=== PATIENT | female | born 1975 | race Caucasian/White ===

== ENCOUNTER 2020-12-17 07:53 | Inpatient (IN) | payer OTHER ==
[~2020-12-17] VITALS: Ht 167.6 cm; Wt 56.5 kg
--- NOTE | 2020-12-17 08:31 | NUR ---
PT WITH +COVID TEST THIS MONTH, NO NEG TEST FOLLOWING. RESP [employer] CART AT DOORWAY. CALL LIGHT WITHIN REACH. LAB IN TO DRAW.
[2020-12-17 08:43] LABS: BASOPHILS % (AUTO) 0 % (0-1); EOSINOPHILS % (AUTO) 0 % (1-7); LYMPHOCYTES % (AUTO) 17 % (22-44); MEAN CORPUSCULAR HEMOGLOBIN 30.5 pg (27.0-34.8); MEAN CORPUSCULAR HGB CONC 34.5 g/dL (32.4-35.8); MEAN PLATELET VOLUME 8.2 fL (7.4-10.4); MONOCYTES % (AUTO) 7 % (2-9); NEUTROPHILS % (AUTO) 76 % (42-75); PLATELET COUNT 402 x10^3/uL (130-400); RED BLOOD COUNT 4.61 x10^6/uL (3.82-5.3); RED CELL DISTRIBUTION WIDTH 13.7 % (9.6-15.2)
--- NOTE | 2020-12-17 08:44 | NUR ---
PT TO CT.
[2020-12-17 08:56] LABS: ALBUMIN 3.9 g/dL (3.4-5.0); ANION GAP 8 mmol/L (5-15); CALCIUM 8.9 mg/dL (8.5-10.1); CHLORIDE 104 mmol/L (98-107)
[2020-12-17 09:09] LABS: ALANINE AMINOTRANSFERASE 14 U/L (12-78); ALKALINE PHOSPHATASE 46 U/L (45-117); BILIRUBIN,TOTAL 0.7 mg/dL (0.2-1.0); CREATININE 0.65 mg/dL (0.55-1.02); TOTAL PROTEIN 7.2 g/dL (6.4-8.2)
--- NOTE | 2020-12-17 10:05 | NUR ---
ALL RESULTS BACK, PT FOR RECHECK.
--- NOTE | 2020-12-17 10:26 | NUR ---
ADD ON ORDER FOR PSYCH LOGGING CONTRACTOR TO SEE.
--- NOTE | 2020-12-17 11:40 | NUR ---
CONTINUE TO AWAIT TELEVISION NEWS ANCHOR TO SEE.
[2020-12-17] MEDS ORDERED: LORazepam 1MG TABLET ONE (11:55)
--- NOTE | 2020-12-17 11:59 | NUR ---
AVE ESPINOZA IN TO SEE PT.
[2020-12-17] MEDS ORDERED: LORazepam 1MG TABLET PO ONE (12:00)
[2020-12-17] MEDS ORDERED: HALOPERIDOL 1 MG TABLET PO ONE (12:30)
[2020-12-17] MEDS ORDERED: HALOPERIDOL 5 MG/ML ONE (12:49)
[2020-12-17] MEDS: HALOPERIDOL 5 MG/ML IV SCH ×3 (12:55→21:00)
[2020-12-17] MEDS ORDERED: ENALAPRILAT 1.25 MG/ML, 2ML IVPush PRN (13:00)
[2020-12-17] MEDS ORDERED: ACETAMINOPHEN 325 MG TABLET PO PRN (13:00)
[2020-12-17] MEDS ORDERED: SODIUM CHLORIDE 0.9% 1,000 ML IV ONE ×2 (13:00)
[2020-12-17] MEDS ORDERED: SODIUM CHLORIDE FLUSH 10ML SYR IVF ONE (13:00)
[2020-12-17] MEDS ORDERED: SODIUM CHLORIDE FLUSH 10ML SYR IVF PRN (13:00)
--- NOTE | 2020-12-17 13:45 | NUR ---
REPORT TO SONDRA LEWIS READY FOR TRANSPORT WHEN ROOM CLEAN.
[2020-12-17] MEDS: LORazepam 1MG TABLET PO PRN (15:21)
[2020-12-17 18:27] VITALS: BP 125/82
[2020-12-17] MEDS: TEMAZEPAM 15 MG CAPSULE PO PRN (19:36)
[2020-12-17] MEDS: TRAZODONE 100MG TABLET PO SCH (21:00)
[2020-12-18] MEDS: TEMAZEPAM 15 MG CAPSULE PO PRN (00:09)
[2020-12-18 00:21] VITALS: BP 122/74
[2020-12-18] MEDS: LORazepam 1MG TABLET PO PRN ×3 (04:26→17:47)
[2020-12-18 06:10] VITALS: BP 108/60
[2020-12-18] MEDS: HALOPERIDOL 5 MG/ML IV SCH (09:16)
[2020-12-18] MEDS ORDERED: OMNIPAQUE 350 MG/ML, 75ML BOTTLE ONE (11:09)
[2020-12-18 14:00] VITALS: BP 125/85
[2020-12-18] MEDS ORDERED: HALOPERIDOL 5 MG TABLET ONE (18:48)
[2020-12-18] MEDS: HALOPERIDOL 5 MG TABLET PO SCH (18:50)
[2020-12-18] MEDS: TRAZODONE 100MG TABLET PO SCH (20:50)
[2020-12-18 21:39] VITALS: BP_SYST 127; BP_SYST 160; BP_DIAS 71
[2020-12-19] MEDS: TEMAZEPAM 15 MG CAPSULE PO PRN ×2 (00:06→21:04)
[2020-12-19 02:18] VITALS: BP 109/70
[2020-12-19] MEDS: LORazepam 1MG TABLET PO PRN ×2 (02:22→09:34)
[2020-12-19 08:00] VITALS: BP 112/81
[2020-12-19] MEDS: HALOPERIDOL 5 MG TABLET PO SCH ×2 (09:30→21:04)
[2020-12-19 14:00] VITALS: BP 112/81
[2020-12-19] MEDS: AMPICILLIN/SULBACTAM 3 GM in SODIUM CHLORIDE 0.9% 100 ML IV SCH ×2 (17:52→23:12)
[2020-12-19 21:00] VITALS: BP 114/75
[2020-12-19] MEDS: TRAZODONE 100MG TABLET PO SCH (21:04)
[2020-12-20] MEDS: AMPICILLIN/SULBACTAM 3 GM in SODIUM CHLORIDE 0.9% 100 ML IV SCH ×2 (05:19→11:19)
[2020-12-20] MEDS: LORazepam 1MG TABLET PO PRN (05:24)
[2020-12-20 06:09] LABS: BASOPHILS % (AUTO) 0 % (0-1); EOSINOPHILS % (AUTO) 1 % (1-7); LYMPHOCYTES % (AUTO) 28 % (22-44); MEAN CORPUSCULAR HEMOGLOBIN 30.7 pg (27.0-34.8); MEAN CORPUSCULAR HGB CONC 34.3 g/dL (32.4-35.8); MEAN PLATELET VOLUME 8.4 fL (7.4-10.4); MONOCYTES % (AUTO) 8 % (2-9); NEUTROPHILS % (AUTO) 63 % (42-75); PLATELET COUNT 350 x10^3/uL (130-400); RED BLOOD COUNT 4.39 x10^6/uL (3.82-5.3); RED CELL DISTRIBUTION WIDTH 13.5 % (9.6-15.2)
[2020-12-20 06:15] LABS: ANION GAP 8 mmol/L (5-15); CALCIUM 8.8 mg/dL (8.5-10.1); CHLORIDE 105 mmol/L (98-107); CREATININE 0.81 mg/dL (0.55-1.02)
[2020-12-20 08:00] VITALS: BP 110/78
[2020-12-20] MEDS: HALOPERIDOL 5 MG TABLET PO SCH (08:43)
[2020-12-20] MEDS ORDERED: AMOX1TAB64 PO ×3 (12:15→12:52)
[2020-12-20] MEDS ORDERED: LORA-446 PO ×2 (12:15→13:34)
[2020-12-20] MEDS ORDERED: TRAZ-175 PO ×2 (12:15→13:34)
[2020-12-20] MEDS ORDERED: HALO5TAB5 PO (12:15)
[2020-12-20] MEDS ORDERED: TEMA15CA6 PO (13:34)
[2020-12-20] MEDS ORDERED: HYDR-826 PO (13:34)
[2020-12-20] MEDS ORDERED: HALO2TAB PO (13:34)
== END 2020-12-20 15:01 | disposition home or self-care (01) | DRG 153 ==
LOC: ED 10:25 → SUATTDRO 12:36 → EDIP 12:39 → 5SO 14:15
PROVIDERS: ADMIT Hospitalist; ATTEND Internal Medicine
DX: J01.90 Acute sinusitis, unspecified (principal); F32.9 Major depressive disorder, single episode, unspecified; F41.9 Anxiety disorder, unspecified; G47.00 Insomnia, unspecified; K62.89 Other specified diseases of anus and rectum; R41.0 Disorientation, unspecified; R62.7 Adult failure to thrive; Z86.16 Personal history of COVID-19
CPT/HCPCS: 36415; 70450; 70551; 71045; 71275; 80048; 80053; 83735; 84100; 84436; 84443; 85025; 93005; 96374; G0378; J0295; Q9967; J1630; J7030; Q0177